=== PATIENT | female | born 2000 | race African-American/Black ===

== ENCOUNTER → 2021-04-03 15:03 | Outpatient (REF) | payer SELFPAY ==
[2021-04-06 03:07] LABS: QNTFERON TB Mitogen Value > 10.00 IU/mL (.); QNTFERON TB Nil Value 0.03 IU/mL (.); QNTFERON TB1+ Ag Value 9.57 IU/mL (.); QNTFERON TB2+ Ag Value 5.93 IU/mL (.)
[2021-04-06 15:29] LABS: QNTIFERON TB Positive Criteria Positive (Negative)
== END ==
LOC: EMPH 15:03
DX: Z00.00 Encounter for general adult medical examination without abnormal findings (principal)
CPT/HCPCS: 36415; 86480

== ENCOUNTER 2021-10-30 15:50 | Outpatient (CLI) | payer MEDICARE, SELFPAY | END 2021-10-30 23:59 | disposition short-term general hospital (02) | LOC: IMMUN 11-07 15:51 | PROVIDERS: Visit Provider Family Medicine | DX: Z23 Encounter for immunization (principal) ==

== ENCOUNTER 2022-06-14 15:20 | Emergency (ER) | payer SELFPAY ==
[2022-06-14 15:21] VITALS: BP 103/74; PULSE 97; RESP 18; TEMP 36.3; O2SAT 98; BMI 22.4
[2022-06-14 15:25] VITALS: BP 103/74; PULSE 97; RESP 18; TEMP 36.3; O2SAT 98
--- NOTE | 2022-06-14 15:31 | EX.ED.DYSGE1 ---
HPI History of Present Illness Chief Complaint: Cold Sx Narrative Narrative: Patient presents with 2 to 3-day history of cough congestion and some myalgias, she had subjective fevers 2 days ago however they have resolved. She has no difficulty breathing, no abdominal pain or rash. She is denying . She has no neck pain or stiffness. No known sick contacts. PFSH PFSH Allergy/AdvReac Type Severity Reaction Status Date / Time No Known Allergies Allergy Verified 06/14/22 15:24 ROS ROS ED ROS Narrative Past medical history: Reviewed, negative Medications: Reviewed Social history: Noncontributory Review of systems: All systems negative except as indicated General: Subjective fevers which improved Eyes: No visual changes ENT: Some upper airway congestion Neck: No neck pain Cardiovascular: No chest pain Respiratory: No shortness of breath or cough Gastrointestinal: No abdominal pain, nausea vomiting or diarrhea Genitourinary: No dysuria Musculoskeletal: Generalized myalgias Skin: No rash Neurological: No memory loss, confusion or any focal weakness Psych: No recent behavioral changes Hematologic: No easy bleeding or easy bruising EXAM Physical Exam Narrative Exam Narrative: Physical exam General: Well nourished, Well developed, No Acute Distress Head: Normocephalic, Atraumatic Eyes: Conjunctiva not pale ENT: Moist mucous membranes, slight upper airway congestion Neck: Supple, Nontender, No lymphadenopathy Cardiovascular: Regular rate, Regular rhythm Respiratory: No distress, CTA bilaterally Abdomen: Soft, Nontender, Nondistended Back: Nontender, Normal Inspection. Negative for: CVA tenderness Extremities: Nontender, No edema Skin: Normal color, No rash Neurological: Alert, Normal Strength, Normal Sensation Psychological: Normal affect Const Vital Signs: 06/14/22 15:21 06/14/22 15:25 Temperature 97.3 F L 97.3 F L Temperature Source Temporal Temporal Pulse Rate 97 97 Respiratory Rate 18 18 Blood Pressure 103/74 103/74 Blood Pressure Mean 83 83 Pulse Ox 98 98 Oxygen Delivery Method Room Air Room Air MDM MDM MDM Narrative Medical decision making narrative: Patient has a viral syndrome. I will test for influenza and COVID she can check results at home otherwise I advised NSAIDs fluids and rest as well as quarantine. Discharge Plan Triage Chief Complaint: Cold Sx ED Provider: Parminder Rodríguez Dx/Rx/DC Orders Clinical Impression: Acute viral syndrome, Acute upper respiratory infection Primary Care Provider: Care Physician,No Primary Referrals: Care Physician,No Primary [Primary Care Provider] - 3-5 Days Disposition Disposition: Home, Self Care
[2022-06-14 15:48] VITALS: PULSE 97; RESP 17; O2SAT 98
== END 2022-06-14 15:56 | disposition home or self-care (01) ==
PROVIDERS: Emergency Provider Emergency Medicine; Visit Provider Emergency Medicine
DX: U07.1 COVID-19 (principal); J06.9 Acute upper respiratory infection, unspecified; B34.9 Viral infection, unspecified
CPT/HCPCS: 87428; 99282

== ENCOUNTER 2022-11-19 13:29 | Emergency (ER) | payer OTHER, SELFPAY ==
[2022-11-19 13:30] VITALS: BP 115/83; PULSE 79; RESP 14; TEMP 36.3; O2SAT 100; BMI 22.3
--- NOTE | 2022-11-19 14:12 | CT_ITS ---
STUDY: CT ABDOMEN AND PELVIS WITH CONTRAST REASON FOR EXAM: Female, 22 years old. Right lower quadrant pain. RADIATION DOSAGE (If Supplied By Facility): CTDIvol = ( 11.50 ) mGy, DLP = ( 297.11 ) mGycm TECHNIQUE: Transaxial images were obtained from the dome of the diaphragm to the symphysis pubis without oral contrast. IV 100mL Isovue-370 was administered. Sagittal and coronal images were reconstructed. Individualized dose optimization techniques were used for this CT. COMPARISON: None. FINDINGS: The visualized lung bases are unremarkable. The visualized portions of the heart are within normal limits. Normal liver. Normal gallbladder and extrahepatic biliary system. Normal spleen. Normal pancreas. Normal bilateral adrenal glands. Normal right kidney. Normal left kidney. Normal visualized stomach. Normal small intestine. Normal colon. The appendix is visualized and appears normal. Normal abdominal aorta. Normal inferior vena cava. Normal retroperitoneum. Normal urinary bladder. Normal abdominal wall. Normal osseous structures. CT/Abdomen/Pelvis W IV Cont ONLY IMPRESSION: Normal enhanced CT of the abdomen and pelvis. Electronically Signed: Bhargav Baig MD at 15:28 EST ,
--- NOTE | 2022-11-19 14:13 | EDS_ITS ---
HPI HPI - GI History of Present Illness Chief Complaint: Abd Pain Informant: patient Narrative Narrative: Progress of right lower quadrant pain since this morning. Bowel movement was mildly loose, no improvement after bowel movement. [place] gassy throughout the day. Reports symptoms of chills. No abdominal surgery in the past no urine symptoms last menstrual period 24 days ago, denies fevers denies vomiting. Nauseated. No history ovarian cyst. No history of similar in the past. Last meal was yesterday. Denies any vaginal bleeding or abnormal discharge. Prior similar symptoms: No PFSH PFSH Medical History History of tuberculosis Home Medications cephalexin 500 mg capsule 500 mg PO Q12 #14 CAPSULES 11/19/22 [Rx Last Taken Unknown] Allergy/AdvReac Type Severity Reaction Status Date / Time No Known Allergies Allergy Verified 11/19/22 13:31 Social History Smoking Status: Never smoker ROS ROS ED Constitutional Constitutional ED: Reports chills; Denies fever(s) or sweats Eyes Eyes: Denies change in vision ENT ENT ED: Denies dysphagia or sore throat Cardiovascular Cardiovascular: Denies chest pain, leg edema, palpitations or racing heartbeat Respiratory/Chest Respiratory/Chest: Denies cough, dyspnea or dyspnea on exertion Gastrointestinal Gastrointestinal: Reports abdominal pain and nausea; Denies diarrhea or vomiting Genitourinary Genitourinary ED: Denies dysuria, hematuria or urinary frequency Musculoskeletal Musculoskeletal: Denies back pain, extremity pain or neck pain Integumentary Denies rash or wounds Neurologic Neurologic: Denies headache(s), paresthesias or weakness EXAM Physical Exam Const Vital Signs: 11/19/22 13:30 11/19/22 15:43 Temperature 97.3 F L Temperature Source Temporal Pulse Rate 79 Respiratory Rate 14 16 Blood Pressure 115/83 H Blood Pressure Mean 93 Pulse Ox 100 Oxygen Delivery Method Room Air Positive well nourished and well developed General Appearance ED: well developed and NAD HEENT Reports moist mucous membranes normocephalic and atraumatic Eyes PERRL, EOMs intact bilaterally and conjunctivae normal General Eye ED: Yes normal appearance of both eyes Neck no lymphadenopathy and supple General: Negative for tenderness Chest Wall Chest: Negative for tenderness Resp normal respiratory effort and normal air movement Effort and Inspection: symmetric chest movement; Negative for respiratory distress Cardio regular rate, regular rhythm and no murmurs Peripheral Pulses: pulses 2+ throughout GI normal to inspection, nondistended, normoactive bowel sounds GI Narrative: Tender right lower quadrant, no pelvic tenderness. Negative Rovsing's. Palpation: Negative for guarding or rebound tenderness present Back/Spine no CVA tenderness and no thoracic nor lumbar tenderness Extremity normal to inspection General Extremety ED: Negative for edema or tenderness General Extremity: Negative for edema Neuro oriented x3 and no sensory deficits noted Sensorium / Orientation: awake and alert Skin no rashes or lesions noted and no wounds MDM MDM MDM Narrative Medical decision making narrative: Interventions / MDM: Differential diagnosis: Appendicitis, kidney stones, ovarian cyst, colitis, ectopic Diagnosis considered but do not suspect: N/A My EKG interpretation: N/A Imaging independently reviewed and interpreted by myself: CT abdomen pelvis: No hydronephrosis, normal appendix, additionally read by radiology. External documents reviewed: N/A Test considered but not ordered:N/A ED course: Patient progressive pain right lower quadrant no pelvic pain. She declined any pain medicines initially. Due to region of pain work-up to rule out appendicitis. Labs White count returned at 6.2 creatinine 0.87 hCG she was negative. Urine did read note positive for 9 whites along with WBC 10-25. Urine culture sent. Interim while CT was reread for increasing pain where morphine was given. CT scan had a normal appendix. Re-evaluation: stable and improved symptoms. Abdominal exam was soft on reevaluation. Patient has not had symptomatic UTIs in the past. Discussed possibly pain or her symptoms for her UTI. She was covered with Rocephin antibiotics she is placed on antibiotics for UTI. Return precaution discussed. Outpatient follow-up given. Disposition discussed with patient/family/significant other: Patient and significant other Case discussed with consulting clinician: N/A Lab Data Attestation: I reviewed the patient's lab results. Labs: Laboratory Results - last 24 hr 11/19/22 11/19/22 11/19/22 13:43 13:43 13:43 WBC 6.2 RBC 4.31 Hgb 12.6 Hct 35.0 L MCV 81.2 MCH 29.2 MCHC 36.0 RDW Std Deviation 41.9 RDW Coeff of Estrada 14.3 Plt Count 307 MPV 10.2 Immature Gran % (Auto) 0.200 Neut % (Auto) 41.2 L Lymph % (Auto) 50.7 H [place] % (Auto) 7.1 Eos % (Auto) 0.5 Baso % (Auto) 0.3 Absolute Neuts (auto) 2.6 Absolute Lymphs (auto) 3.14 Nucleated RBC % 0 Sodium 138 Potassium 4.2 Chloride 108 H Carbon Dioxide 24.0 Anion Gap 6 BUN 13 Creatinine 0.87 Estim Creat Clear Calc 88.33 Est GFR (MDRD) Af Amer 105 Est GFR (MDRD) Non-Af 87 BUN/Creatinine Ratio 14.9 Glucose 88 Calcium 8.9 Serum , Qual NEGATIVE Urine Color Urine Clarity Urine pH Ur Specific [place] Urine Protein Urine Glucose (UA) Urine Ketones Urine Occult Blood Urine Nitrite Urine Bilirubin Urine Urobilinogen Ur Leukocyte Esterase Urine RBC Urine WBC Ur Squamous Epith Cells Urine Bacteria Urine Mucus 11/19/22 14:37 WBC RBC Hgb Hct MCV MCH MCHC RDW Std Deviation RDW Coeff of Estrada Plt Count MPV Immature Gran % (Auto) Neut % (Auto) Lymph % (Auto) [place] % (Auto) Eos % (Auto) Baso % (Auto) Absolute Neuts (auto) Absolute Lymphs (auto) Nucleated RBC % Sodium Potassium Chloride Carbon Dioxide Anion Gap BUN Creatinine Estim Creat Clear Calc Est GFR (MDRD) Af Amer Est GFR (MDRD) Non-Af BUN/Creatinine Ratio Glucose Calcium Serum , Qual Urine Color Yellow Urine Clarity Sl Cloudy Urine pH 7.0 Ur Specific [place] 1.005 Urine Protein 15 H Urine Glucose (UA) Normal Urine Ketones Negative Urine Occult Blood Negative Urine Nitrite Positive H Urine Bilirubin Negative Urine Urobilinogen Normal Ur Leukocyte Esterase 100 H Urine RBC 0-5 SEEN Urine WBC 10-25 SEEN Ur Squamous Epith Cells 0-5 SEEN Urine Bacteria 3+ Urine Mucus 0 SEEN Radiography Diagnostic Testing: Clinical Impression(s) from Imaging Studies Abdomen/Pelvis CT 11/19/22 14:12 IMPRESSION: Normal enhanced CT of the abdomen and pelvis. Electronically Signed: Bhargav Baig MD at 15:28 EST , Discharge Plan Triage Chief Complaint: Abd Pain ED Provider: Robb Lyle Dx/Rx/DC Orders Clinical Impression: Abdominal pain, UTI (urinary tract infection) Instructions: Abdominal Pain, Urinary Tract Infections in Women Prescriptions: New cephalexin [cephalexin] 500 mg capsule 500 mg PO Q12 Qty: 14 0RF Primary Care Provider: Care Physician,No Primary Referrals: Cary Rocha MD [Med Staff - Shank Archer] - 1-2 Weeks Care Physician,No Primary [Primary Care Provider] - Activity Restrictions/Additional Instructions: CT scan with normal appendix labs stable urine no signs of infection. Take antibiotic as prescribed, Tylenol or ibuprofen as needed. Return if any worsening symptoms. Disposition Disposition: Home, Self Care Discharge Date/Time: 11/19/22 16:54
[2022-11-19 14:26] LABS: Absolute Lymphocyte Count 3.14 X10^3/uL (0.83-4.51); Absolute Neutrophil Count 2.6 X10^3/uL (2.0-7.7); Basophil# 0.02 X10^3/uL; Basophil% 0.3 % (0-1); Eosinophil# 0.03 X10^3/uL; Eosinophils% 0.5 % (0-5); Hemoglobin 12.6 g/dL (12.0-15.0); Lymphocyte # 3.14 X10^3/ul (0.83-4.51); Lymphocyte % 50.7 % (19-41); Mean Corpuscular Hgb 29.2 pg (27.0-32.0); Mean Corpuscular Volume 81.2 fL (81-99); Mean Platelet Vol. 10.2 fl (6.2-12.0); Monocyte# 0.44 X10^3/uL; Monocyte% 7.1 % (0-10); NRBC Flagged by Analyzer 0 % (0-5); Neutrophil # 2.55 X10^3/uL (2.7-7.7); Neutrophil % 41.2 % (47-70); Platelet Count 307 K/mm3 (150-450); RBC Distribution Width CV 14.3 % (11.6-14.6); RBC Distribution Width SD 41.9 fl (35.1-43.9); Red Blood Count 4.31 M/mm3 (4.2-5.4); White Blood Count 6.2 K/mm3 (4.4-11.0)
[2022-11-19] MEDS: 0.9% Normal Saline 1,000 ML 1000 ML IV (14:37)
[2022-11-19] MEDS: Ondansetron 4 MG/2 ML Vial IV (14:37)
[2022-11-19 14:41] LABS: Anion Gap 6 (5-15); BUN 13 mg/dL (7-18); BUN/Creat Ratio 14.9 RATIO (10-20); Calcium,Total 8.9 mg/dL (8.5-10.1); Chloride 108 mmol/L (98-107); Creatinine, Serum 0.87 mg/dL (0.55-1.02); EST Glomerular Filtration Rate 87 mL/min (>60); Est Glom Filt Rate - Afr Amer 105 mL/min (>60); Estimated Creatinine Clearance 88.33 ml/min; Glucose 88 mg/dL (74-106); Potassium 4.2 mmol/L (3.5-5.1); Sodium Level 138 mmol/L (136-145)
[2022-11-19 14:44] LABS: Mucous, Urine 0 SEEN /hpf (<or=2+)
[2022-11-19 14:46] LABS: Glucose, Dipstick Normal (Normal); Ketone-Dipstick Negative (Negative); Leukocyte Esterase-Dipstick 100 /ul (Negative); Nitrite-Dipstick Positive (Negative); Occult Blood-Urine Negative /ul (Negative); Protein-Dipstick 15 mg/dl (Negative); Specific Gravity, Urine 1.005 (1.002-1.030); Urine Bilirubin Dipstick Negative (Negative); Urine Urobilinogen Normal (Normal)
[2022-11-19 14:54] LABS: Color, Urine Yellow (Yellow); Urine Clarity Sl Cloudy (Clear)
[2022-11-19 14:56] LABS: Internal QC Validated? YES +Cl - CLEAR BKGD; Pregnancy, Serum, hCG Quali. NEGATIVE Negative
[2022-11-19 14:57] LABS: Red Blood Cells-Urine 0-5 SEEN /hpf (0-5); Squamous Epithelial Cells - UA 0-5 SEEN /hpf (5-10); White Blood Cells 10-25 SEEN /hpf (0-5)
[2022-11-19 14:58] LABS: Bacteria 3+ /hpf (None Seen)
[2022-11-19] MEDS: Morphine 4 MG/ML Syringe IV (15:15)
[2022-11-19 15:43] VITALS: RESP 16
[2022-11-19] MEDS: Ceftriaxone 1 GM/50 ML BAG IV (16:03)
== END 2022-11-19 16:54 | disposition home or self-care (01) ==
PROVIDERS: Emergency Provider Emergency Medicine; Visit Provider Emergency Medicine
DX: N39.0 Urinary tract infection, site not specified (principal); R11.0 Nausea
CPT/HCPCS: 74177; 80048; 81001; 84703; 85025; 87086; 87088; 96361; 96365; 96375; 99283; J7030; J7050; Q9967; A4216; J2405

== ENCOUNTER 2022-12-19 20:33 | Emergency (ER) | payer OTHER, SELFPAY ==
[2022-12-19 20:33] VITALS: BP 105/66; PULSE 83; RESP 100; TEMP 36.4; BMI 22.6
[2022-12-19 21:02] VITALS: O2SAT 98
--- NOTE | 2022-12-19 21:02 | EDS_ITS ---
HPI History of Present Illness Chief Complaint: General Illness Detail of Chief Complaint: Sore throat and cough. Informant: patient Onset/Context/Timing Onset: Today and Yesterday Context: Gradual Onset Timing: Intermittent Current Severity: Mild Maximum Severity: Mild Narrative Narrative: 22-year-old female no seen past medical or surgical history. Currently on no medications. 2 to 3 weeks ago was diagnosed with a UTI treated with antibiotics and his symptoms resolved. She is a student at [employer]. Said she has been congested since yesterday. Has had a sore throat but is able to swallow. She just has not felt well. No vomiting. No diarrhea. No dysuria. Prior similar symptoms: Yes Recent Illness/Hospitalization: No PFSH PFS Medical History History of tuberculosis Home Medications cephalexin 500 mg capsule 500 mg PO Q12 #14 CAPSULES 11/19/22 [Rx Last Taken Unknown] Allergy/AdvReac Type Severity Reaction Status Date / Time No Known Allergies Allergy Verified 12/19/22 20:37 Social History Smoking Status: Never smoker ROS ROS ED ROS Narrative Nasal congestion. Sore throat. Cough. Review of Systems ROS Unobtainable: Denies due to encephalopathy Constitutional Constitutional ED: Denies chills or fever(s) Eyes Eyes: Denies blurry vision ENT ENT ED: Reports rhinorrhea and sore throat; Denies ear pain Cardiovascular Cardiovascular: Denies chest pain Respiratory/Chest Respiratory/Chest: Reports cough; Denies dyspnea Gastrointestinal Gastrointestinal: Denies abdominal pain, constipation, diarrhea, melena, nausea or vomiting Genitourinary Genitourinary ED: Denies dysuria or hematuria Musculoskeletal Musculoskeletal: Denies arthralgias Integumentary Denies abscess or Abrasions Neurologic Neurologic: Denies headache(s) Psychiatric Psychiatric: Denies anxiety or depression Endocrine Endocrinology: Denies cold intolerance Hematologic/Lymphatic Hematologic/Lymphatic: Reports none Allergic/Immunologic Allergic/Immunologic ED: Denies mouth swelling or tongue swelling EXAM Physical Exam Narrative Exam Narrative: 22-year-old female no acute distress. Vital signs are stable afebrile. H EENT exam posterior pharynx unremarkable. No exudate. No trouble swallowing or breathing. No significant erythema. TMs normal bilaterally. Neck nontender no lymphadenopathy. Trachea midline. Lungs clear to auscultation bilaterally. Heart regular rhythm rate about 80 no murmur. Chest wall nontender. Abdomen soft nontender. Moving all 4 extremities. Calves are nontender without edema or cords. Back nontender. Neurologically she is awake alert with no focal motor deficits. Clinically patient looks well. Benign exam. Const Vital Signs: 12/19/22 20:33 12/19/22 21:00 12/19/22 21:02 Temperature 97.5 F L Temperature Source Temporal Pulse Rate 83 Respiratory Rate 100 H Respiratory Effort Normal Blood Pressure 105/66 Blood Pressure Mean 79 Pulse Ox 98 Oxygen Delivery Method Room Air Room Air Positive well nourished and well developed; Negative for obese, cachectic, contractures or unkempt General Appearance ED: well developed and NAD; Negative for unkempt, cachectic, contractures, cyanotic, diaphoretic or pallor Nutritional Appearance: Negative for cachectic or obese HEENT Reports TM's clear and moist mucous membranes; Denies dry mucous membranes Negative for trauma or tenderness Tympanic Membrane ED: Yes TM's clear Mouth ED: No dry mucous membranes Mouth: No dry mucous membranes Eyes EOMs intact bilaterally General Eye ED: Negative for pale conjunctiva or scleral icterus Neck no lymphadenopathy, supple and no JVD General: Negative for tenderness Chest Wall inspection of chest normal and palpation of chest normal Chest: Negative for other Resp normal respiratory effort and clear to auscultation bilaterally Effort and Inspection: Negative for retractions Auscultation: Negative for rales, rhonchi or wheezes Cardio regular rate, regular rhythm, S1 normal heart sound, S2 normal heart sound and no murmurs Palpation: Negative for palpable S3 Rate: Negative for bradycardia Rhythm: Negative for abnormal rhythm GI normal to inspection, nondistended, normoactive bowel sounds, non-tender, non- distended and no masses Inspection: Negative for abdominal distention Auscultation: normoactive bowel sounds Palpation: soft; Negative for tender or guarding Back/Spine no CVA tenderness General Back: Negative for CVA tenderness Cervical Spine: Negative for cervical spine tenderness Thoracic Spine / Upper Back: Negative for thoracic spinal tenderness Lumbar Spine / Lower Back: Negative for lumbar spinal tenderness Extremity normal to inspection General Extremety ED: Negative for edema or tenderness General Extremity: Negative for edema Neuro oriented x3 and CN's II-XII intact bilaterally Sensorium / Orientation: alert; Negative for orientation impaired, lethargic or stuporous Motor Exam: strength 5/5 throughout Psych mental status grossly normal Appearance: Negative for unkempt Attitude: No agitated Mood & Affect: Negative for depressed, anxious or tearful Skin no rashes or lesions noted and no wounds General Skin Exam: elasticity normal; Negative for jaundice or pallor Lesions: No lesion noted Rashes: No rashes noted Trauma: Negative for abrasion Wounds: Negative for wounds noted MDM MDM MDM Narrative Medical decision making narrative: 22-year-old female with sore throat and cough. Rapid strep and chest x-ray being obtained. Clinically looks well. Does not appear to be septic or toxic. No meningismal signs. Able to touch chin to chest. Most likely has a viral syndrome. Repeat exam patient doing well at 10:11 PM. Repeat exam unchanged. Throat is unremarkable. We discussed her test results. Tylenol Motrin. Fluids and rest. Follow-up if not improving or return if worse. Lab Data Attestation: I reviewed the patient's lab results. Lab results narrative: Rapid strep test is negative. Chest x-ray is negative. Radiography Chest X-Ray - ED: 2 View, Read by ED Physician, Read by Radiologist, Lungs, Mediastinum, Bony Structures, No Acute Disease and Chronic Changes Diagnostic Testing: Clinical Impression(s) from Imaging Studies Chest X-Ray 12/19/22 21:07 IMPRESSION: No radiographic evidence of acute cardiopulmonary disease. Electronically Signed: Jaime Cartwright MD at 21:27 EDT Reading Location ID and State: [facility] / [place] , Service support , Chest x-ray, 2 views, AP and lateral, interpreted by myself and radiologist shows no acute abnormality. No infiltrate. Normal cardiac silhouette. Discharge Plan Triage Chief Complaint: General Illness ED Provider: Alexander Posada Dx/Rx/DC Orders Clinical Impression: Viral syndrome Instructions: ED URI, Viral, No Abx (Adult) Prescriptions: No Action cephalexin [cephalexin] 500 mg capsule 500 mg PO Q12 Qty: 14 0RF Primary Care Provider: Care Physician,No Primary Referrals: Farhat Guajardo MD [Med Staff - [employer]] - 1 Week if not improving Care Physician,No Primary [Primary Care Provider] - Activity Restrictions/Additional Instructions: Plenty of fluids and rest. Tylenol and Motrin for body aches and any fevers. Follow-up if not improving return if feeling a lot worse. Disposition Disposition: Home, Self Care
--- NOTE | 2022-12-19 21:07 | RAD_ITS ---
EXAM: XR CHEST, 2 VIEWS CLINICAL INDICATION: cough TECHNIQUE: Frontal and lateral views of the chest. This report was created using [employer] report generation technology. COMPARISON: 04.12.21 FINDINGS: LUNGS AND PLEURAL SPACES: Unremarkable. No consolidation or edema. No pneumothorax. No effusion. HEART: Unremarkable. Cardiac silhouette not enlarged. MEDIASTINUM: Central airways and mediastinal contour are unremarkable. BONES/JOINTS: Unremarkable. SOFT TISSUES: Unremarkable. RAD/Chest PA and Lateral IMPRESSION: No radiographic evidence of acute cardiopulmonary disease. Electronically Signed: Jaime Cartwright MD at 21:27 EDT ,
[2022-12-19 22:13] VITALS: RESP 16
== END 2022-12-19 22:23 | disposition home or self-care (01) ==
PROVIDERS: Emergency Provider Emergency Medicine; Visit Provider Emergency Medicine
DX: B34.9 Viral infection, unspecified (principal)
CPT/HCPCS: 71046; 87880; 94760; 99282

== ENCOUNTER 2023-01-16 06:49 | Emergency (ER) | payer OTHER, SELFPAY ==
[2023-01-16 06:50] VITALS: BP 117/79; PULSE 94; RESP 16; TEMP 36.7; O2SAT 97; BMI 23.1
--- NOTE | 2023-01-16 07:13 | RAD_ITS ---
STUDY: X-RAY - LEFT SHOULDER REASON FOR EXAM: Female, 22 years old. Pain TECHNIQUE: 4 view(s) of the shoulder. COMPARISON: None. FINDINGS: Normal glenohumeral articulation. Normal acromioclavicular joint. Normal acromion. Normal humeral head and visualized proximal humerus. The soft tissue structures are unremarkable. Normal visualized pulmonary apex. RAD/Shoulder min 2 Views IMPRESSION: Normal x-ray examination of the shoulder. Electronically Signed: Edwin Caban MD at 7:50 EDT ,
--- NOTE | 2023-01-16 07:16 | EDS_ITS ---
HPI History of Present Illness Chief Complaint: Upper Extremity Injury Informant: patient Narrative Narrative: Patient states she started having left anterior shoulder pain 5 days ago, started gradually and got worse but then it went away. She is [id number] nt. She states 2 days ago she was working out but doing lower body, and since then her left shoulder has been hurting worse again, same pain, now severe. She does not recall injuring it. When asked about the type of workout she was doing prior to this she states basically cardio, she was not doing specific workouts involving her arms or shoulders. She denies any fevers or chills or any systemi c symptoms. It is never hurt like this before. She denies any other types of arthritis in the past. [facility] Medical History History of tuberculosis Home Medications naproxen 500 mg tablet (Naprosyn) 500 mg PO BID PRN pain #14 tabs 01/16/23 [Rx Last Taken Unknown] tramadol 50 mg tablet 50 mg PO Q6H PRN pain 3 days #12 tabs 01/16/23 [Rx Last Taken Unknown] Allergy/AdvReac Type Severity Reaction Status Date / Time No Known Allergies Allergy Verified 01/16/23 06:57 Social History Smoking Status: Never smoker ROS ROS ED Constitutional Constitutional ED: Denies chills or fever(s) Musculoskeletal Musculoskeletal: Reports extremity pain; Denies neck pain Integumentary Denies Abrasions, rash or wounds Neurologic Neurologic: Denies paresthesias or weakness EXAM Physical Exam Const Vital Signs: 01/16/23 06:50 Temperature 98.1 F Temperature Source Temporal Pulse Rate 94 Respiratory Rate 16 Blood Pressure 117/79 Blood Pressure Mean 91 Pulse Ox 97 Oxygen Delivery Method Room Air Positive well nourished and well developed General Appearance ED: well developed and NAD Neck full ROM and supple Back/Spine normal ROM and normal to inspection Extremity normal to inspection Extremity Narrative: Patient can do some short arc range of motion but she does very little with the left shoulder. She is extremely tender anteriorly around the long head of the biceps. Nontender at the coracoid and the acromioclavicular joint and the other bony prominences of the left shoulder. No significant subacromial tenderness. Positive Yergason. Neurovascularly intact distally. Shoulder is not excessively warm compared to other areas. Neuro oriented x3, no focal motor deficits and no sensory deficits noted Sensorium / Orientation: alert Psych mental status grossly normal and thought process normal Skin no wounds Rashes: no rashes MDM MDM MDM Narrative Medical decision making narrative: Very limited exam/range so difficult to discern exactly the structure that is bothering her, but given the location, my suspicion is that she has biceps tendinitis. She really does not want to move her shoulder, she can externally rotate but states it hurts, and she will not abduct due to pain. She is tearful. She becomes anxious and tearful just with me gently examining her shoulder by palpating in anticipation that I am going to move something. It is not hot and her vital signs are normal, she is healthy 22-year-old who has no reason to have a septic joint or anything else like that, furthermore I think that is less likely because her pain is localized anteriorly where the long head of the biceps is. She does not have any other focal areas of significant tenderness. I performed x-rays, 4 views of interpretation negative for anything acute. Radiology was in agreement. I am given her a sling to use for comfort, something for pain including anti-inflammatories, and a referral to orthopedics if she has further problems. Discharge Plan Triage Chief Complaint: Upper Extremity Injury ED Provider: Harish Mccarthy Dx/Rx/DC Orders Clinical Impression: Acute pain of left shoulder Instructions: Biceps Tendonitis Proximal, ED Sling Prescriptions: New tramadol 50 mg tablet 50 mg PO Q6H PRN (Reason: pain) 3 Days Qty: 12 0RF naproxen [Naprosyn] 500 mg tablet 500 mg PO BID PRN (Reason: pain) Qty: 14 0RF Primary Care Provider: Care Physician,No Primary Referrals: Greg Moran, [Med Staff - Active Staff] - 3-5 Days if not improving Care Physician,No Primary [Primary Care Provider] - Activity Restrictions/Additional Instructions: If you develop fevers and your shoulder begins to hurt everywhere instead of just in the front, return to the ER for reevaluation. Disposition Disposition: Home, Self Care
[2023-01-16] MEDS: Naproxen 250 MG Tablet 500 MG PO (08:07)
[2023-01-16] MEDS: HYDROcodone Bitartrate/Apap 5/325 Tablet PO (08:08)
== END 2023-01-16 08:12 | disposition home or self-care (01) ==
PROVIDERS: Emergency Provider Emergency Medicine; Visit Provider Emergency Medicine
DX: M25.512 Pain in left shoulder (principal)
CPT/HCPCS: 73030; 99284

== ENCOUNTER 2023-06-01 21:05 | Emergency (ER) | payer OTHER, SELFPAY ==
[2023-06-01 21:06] VITALS: BP 114/68; PULSE 93; RESP 16; TEMP 36.4; O2SAT 99; BMI 23.3
[2023-06-01 21:33] VITALS: RESP 18
[2023-06-01 22:26] LABS: Mucous, Urine 0 SEEN /hpf (<or=2+); Red Blood Cells-Urine 0 SEEN /hpf (0-5); White Blood Cells 0 SEEN /hpf (0-5)
[2023-06-01 22:31] LABS: Color, Urine Yellow (Yellow); Glucose, Dipstick Normal (Normal); Ketone-Dipstick Negative (Negative); Leukocyte Esterase-Dipstick 25 /ul (Negative); Nitrite-Dipstick Negative (Negative); Occult Blood-Urine 150 /ul (Negative); Protein-Dipstick 15 mg/dl (Negative); Specific Gravity, Urine 1.015 (1.002-1.030); Urine Bilirubin Dipstick Negative (Negative); Urine Clarity Clear (Clear); Urine Urobilinogen Normal (Normal)
[2023-06-01 22:41] LABS: Amorphous Sediment 1+; Bacteria 1+ /hpf (None Seen); Squamous Epithelial Cells - UA 5-10 SEEN /hpf (5-10)
--- NOTE | 2023-06-01 22:44 | EDS_ITS ---
HPI HPI - Female History of Present Illness Chief Complaint: Female C/O Detail of Chief Complaint: Painful lesion near the inferior portion of the labia majora on the left Informant: patient Pain Pain: Positive for Vaginal Pain; Negative for Pelvic Pain or Vulvar Pain Onset: Days (2 days ago) Context: Sudden Onset Timing: Continuous Quality: Positive for Aching Location: - (Left inferior labia majora) Current Severity: Mild Maximum Severity: Moderate Worsened by: Movement and [place] Relieved by: - (Nothing) Bleeding Issue: Negative for Vaginal bleeding, Passing clots or Passing tissue Vaginal Discharge Onset: Today Quality: Positive for - (Brown) Severity: Light Associated Symptoms Associated Symptoms: Positive for Irregular Period; Negative for Dysuria, Frequency, Urgency or Hematuria Last known menstrual period: May 22 Sexually: Positive for Active Control: No control Narrative Narrative: Patient is a 23-year-old female presents with pain inferior left labia majora/perineal region. She does report brown vaginal discharge. The pain started 2 days ago. Brown vaginal discharge noted today. She does report dyspareunia. She is does not use any form of control. She has no signs symptoms of . Her last menses was April 21. She complains of fullness in the bladder area. She denies pain or discomfort with urination. She denies blood with urination. She denies history of STI. Prior similar symptoms: No Recent Illness/Hospitalization: No PFSH PFS Medical History History of tuberculosis Home Medications naproxen 500 mg tablet (Naprosyn) 500 mg PO BID PRN pain #14 tabs 01/16/23 [Rx Last Taken Unknown] tramadol 50 mg tablet 50 mg PO Q6H PRN pain 3 days #12 tabs 01/16/23 [Rx Last Taken Unknown] doxycycline monohydrate 100 mg capsule 100 mg PO BID #14 CAPSULES 06/01/23 [Rx Last Taken Unknown] Allergy/AdvReac Type Severity Reaction Status Date / Time No Known Allergies Allergy Verified 06/01/23 21:06 Social History (Updated 06/01/23 @ 22:[address] Gaston Campuzano MD) household members: none Smoking Status: Never smoker substance use type: does not use ROS ROS ED Constitutional Constitutional ED: Denies chills, fever(s), subjective or sweats Eyes Eyes: Denies blurry vision or change in vision ENT ENT ED: Denies sore throat Gastrointestinal Gastrointestinal: Denies abdominal pain, diarrhea, nausea or vomiting Genitourinary Genitourinary ED: Denies dysuria, hematuria or urinary frequency Musculoskeletal Musculoskeletal: Denies arthralgias, myalgias or neck pain Integumentary Denies rash Hematologic/Lymphatic Hematologic/Lymphatic: Denies easy bleeding or easy bruising EXAM Physical Exam Const Vital Signs: 06/01/23 21:06 Temperature 97.5 F L Temperature Source Temporal Pulse Rate 93 Respiratory Rate 16 Blood Pressure 114/68 Blood Pressure Mean 83 Pulse Ox 99 Positive well nourished and well developed General Appearance ED: well developed and NAD; Negative for odor of alcohol detected HEENT Reports TM's clear and moist mucous membranes HEENT Narrative: Head is normocephalic and atraumatic. Nares patent. Posterior pharynx is normal. Tympanic Membrane ED: Yes TM's clear Eyes PERRL and EOMs intact bilaterally General Eye ED: Negative for pale conjunctiva or scleral icterus Neck no lymphadenopathy, supple and no JVD Resp normal respiratory effort Cardio regular rate and regular rhythm GI normal to inspection, nondistended, normoactive bowel sounds, soft to palpation, non-tender, non-distended and no masses Narrative: External genitalia appears normal. Vaginal mucosa appears normal. Patient has brown cervical discharge noted. There is no particular orders noted. There is slight inflammation of the cervix. Patient has tenderness with no fullness or fluctuance at the introitus at 4 or 5:00. There is no rosa lymphadenopathy. There is no discomfort pressure against the bladder. Back/Spine no CVA tenderness Extremity normal to inspection and full ROM Neuro oriented x3, CN's II-XII intact bilaterally and no sensory deficits noted Sensorium / Orientation: alert Motor Exam: strength 5/5 throughout Psych mental status grossly normal Skin no rashes or lesions noted MDM MDM MDM Narrative Medical decision making narrative: Patient may have STI. Also need to concern for possible early Bartholin's abscess. Will obtain urine to rule out UTI. Serum test was ordered since her last menses was April 21 and patient does not use any form of control. Lab Data Attestation: I reviewed the patient's lab results. Lab results narrative: UA reveals a contaminated specimen. test was negative. Since process is negative and patient has dyspareunia with brown discharge will treat with doxycycline and Rocephin. She was referred to Dr. Solano Labs: Laboratory Results - last 24 hr 06/01/23 06/01/23 22:20 22:40 Serum , Qual NEGATIVE Urine Color Yellow Urine Clarity Clear Urine pH 7.0 Ur Specific [place] 1.015 Urine Protein 15 H Urine Glucose (UA) Normal Urine Ketones Negative Urine Occult Blood 150 H Urine Nitrite Negative Urine Bilirubin Negative Urine Urobilinogen Normal Ur Leukocyte Esterase 25 H Urine RBC 0 SEEN Urine WBC 0 SEEN Ur Squamous Epith Cells 5-10 SEEN Amorphous Sediment 1+ Urine Bacteria 1+ Urine Mucus 0 SEEN Discharge Plan Triage Chief Complaint: Female C/O ED Provider: Gaston Campuzano Dx/Rx/DC Orders Clinical Impression: Acute cervicitis, Pelvic pain, Purulent vaginal discharge Prescriptions: New doxycycline monohydrate 100 mg capsule 100 mg PO BID Qty: 14 0RF No Action tramadol 50 mg tablet 50 mg PO Q6H PRN (Reason: pain) 3 Days Qty: 12 0RF naproxen [Naprosyn] 500 mg tablet 500 mg PO BID PRN (Reason: pain) Qty: 14 0RF Primary Care Provider: Care Physician,No Primary Referrals: Barbra Li DO [Med Staff - Active Staff] - 3-5 Days Care Physician,No Primary [Primary Care Provider] - Activity Restrictions/Additional Instructions: You may take either 4 ibuprofen tablets every 8 hours or 2 Aleve tablets every 12 hours for the next 3 to 5 days for your pelvic pain Disposition Disposition: Home, Self Care
[2023-06-01 22:58] LABS: Internal QC Validated? YES +Cl - CLEAR BKGD; Pregnancy, Serum, hCG Quali. NEGATIVE Negative
[2023-06-01] MEDS: Acetaminophen 500 MG Tablet PO (23:04)
[2023-06-02] MEDS: Doxycycline 100 MG CAPSULE PO (00:18)
[2023-06-02] MEDS: Ceftriaxone 500 MG Vial IM (00:18)
== END 2023-06-02 01:12 | disposition home or self-care (01) ==
PROVIDERS: Emergency Provider Emergency Medicine; Visit Provider Emergency Medicine
DX: N89.8 Other specified noninflammatory disorders of vagina (principal); N72 Inflammatory disease of cervix uteri; N94.10 Unspecified dyspareunia; R10.2 Pelvic and perineal pain
CPT/HCPCS: 81001; 84703; 87491; 87591; 96372; 99283

== ENCOUNTER 2023-08-28 15:18 | Emergency (ER) | payer OTHER, SELFPAY ==
[2023-08-28 15:21] VITALS: BP 98/61; PULSE 109; RESP 18; TEMP 36.4; O2SAT 99; BMI 23.1
--- NOTE | 2023-08-28 15:26 | EDS_ITS ---
HPI History of Present Illness Chief Complaint: Fever [facility] Medical History History of tuberculosis Home Medications amoxicillin 875 mg-potassium clavulanate 125 mg tablet 1 tab PO BID #14 tabs 08/28/23 [Rx Last Taken Unknown] Allergy/AdvReac Type Severity Reaction Status Date / Time No Known Allergies Allergy Verified 08/28/23 15:20 Family History no significant family his Social History household members: none Smoking Status: Current every day smoker tobacco type: e-cigarettes substance use type: does not use EXAM Physical Exam Const Vital Signs: 08/28/23 15:21 08/28/23 15:27 Temperature 97.6 F L Temperature Source Temporal Pulse Rate 109 H Respiratory Rate 18 Respiratory Pattern Normal Blood Pressure 98/61 Blood Pressure Mean 73 Pulse Ox 99 Oxygen Delivery Method Room Air MDM MDM MDM Narrative Medical decision making narrative: HISTORY OF PRESENT ILLNESS: 23-year-old female here with concern for feverAnd pain. States he has been putting on. States took Tylenol 1 hour prior to arrival. Notes home therapy 100.4. Also notes nausea sore throat headache and swollen glands. Patient denies sudden onset or thunderclap headache, denies maximal intensity within 1 minute, vomiting, neck pain, stiffness, changes in vision, fever, history malignancy, syncope, or seizures associated with headache. REVIEW OF SYSTEMS: Pertinent positives: Sore throat, headache, fever Pertinent negatives: Syncope, drooling, difficulty swallowing PHYSICAL EXAM: Nursing triage notes reviewed, Vital signs reviewed Constitutional: please see mdm HENT: MMM, erythema noted posterior oropharynx, mild tonsillar edema, uvula midline, tonsillar exudates noted Eyes: Pupils equal round and reactive to light, Extraocular muscles intact Neck: No stridor, no JVD, full neck ROM, anterior cervical lymphadenopathy Lungs: Clear to auscultation, No wheezing or rales. No increased work of breathing, no conversational dyspnea, no accessory muscle use, no nasal flaring. No respiratory distress noted Heart: Regular rate and rhythm, No murmurs, No rubs and No gallops, 2+ distal pulses (radial, femoral, posterior tibial) in all extremities Abdomen: Soft, there is no tenderness, rigidity, rebound or guarding, no obvious peritoneal signs, no palpable pulsatile abdominal masses, no auscultated abdominal bruit Neuro: Alert and oriented x3, neuro exam at baseline, cranial nerves II through XII are intact. No pain with extraocular muscle movement. There is negative test of skew. 5 of 5 strength in upper and lower extremities in flexion extension. Intact sensation to light touch in upper and lower extremity dermatomes. No truncal or extremity ataxia. No dysdiadochokinesia. Normal gait. 2+ reflexes in upper and lower extremities. No meningeal signs. Negative Babinski. NIH of 0. Skin: No rash or lesions noted MEDICAL DECISION MAKING: Chief Complaint: Fever External records reviewed: COVID-positive in 2021 Factors affecting care: none Social determinants of health: none History obtained from others: none Consults: none [facility] Narrative: Patient was initially mildly tachycardic, afebrile. Exam I considered the following differential diagnosis: Viral URI, COVID, flu, pharyngitis Patient's clinical exam is consistent with bacterial pharyngitis we will give empiric Augmentin. Gave strict return precautions. No signs of Alvin angina, RPA, CAREER COACH or LeMiere syndrome. The patient and/or family, caregivers express understanding. The patient and/or family, caregivers agrees with the plan. Shared decision making: I will have a discussion with the patient and or visitors regarding risk/benefits of further testing or admission. They will be made aware of of the risk/benefits inherent in this decision they will be given the opportunity to voice understanding. Total critical care time today provided was at least 0 minutes. This excludes separately billable procedures. Critical care time (if documented) is secondary to the patient having high probability of clinically significant/life threatening deterioration in the patient's condition which required my urgent intervention. Impression: 1. Acute bacterial pharyngitis Dispo: Discharge Discharge Plan Triage Chief Complaint: Fever ED Provider: Alfredo Estes Dx/Rx/DC Orders Instructions: Tonsillitis in Adults Prescriptions: New amoxicillin-pot clavulanate 875-125 mg tablet 1 tab PO BID Qty: 14 0RF Stand Alone Forms: ED Work / School Excuse Primary Care Provider: Care Physician,No Primary Referrals: Alfa Dennis MD [Med Staff - [employer] Par[employer]] - Activity Restrictions/Additional Instructions: Thank you for trusting us with your care today! Please take Tylenol (2 pills, 650 mg), ibuprofen (2 pills, 400 mg) every 6 hours as needed for pain and fever control. Please take antibiotics as prescribed. Please return to the emergency department if your symptoms change or worsen. Specific if develop drooling, neck stiffness, swelling underneath your jaw, difficulty swallowing, vomiting. Please follow with your primary care physician for further outpatient evaluation and management. Disposition Disposition: Home, Self Care
[2023-08-28] MEDS: Ibuprofen 200 MG Tablet 400 MG PO (15:49)
[2023-08-28] MEDS: Amox/Clavulanate 875 MG Tablet PO (15:50)
[2023-08-28 16:12] VITALS: PULSE 78; RESP 18
== END 2023-08-28 16:24 | disposition home or self-care (01) ==
LOC: ED 15:53
PROVIDERS: Emergency Provider Emergency Medicine; Visit Provider Emergency Medicine
DX: J02.9 Acute pharyngitis, unspecified (principal); F17.290 Nicotine dependence, other tobacco product, uncomplicated
CPT/HCPCS: 99283

== ENCOUNTER 2023-11-10 06:10 | Emergency (ER) | payer SELFPAY ==
[2023-11-10 06:11] VITALS: BP 102/66; PULSE 96; RESP 16; TEMP 36.6; O2SAT 98; BMI 23.5
--- NOTE | 2023-11-10 06:27 | ED.VIS.GI ---
HPI HPI - GI History of Present Illness Chief Complaint: Nausea/Vomiting Informant: patient Abdominal Pain/Flank Pain Onset: Yesterday Context: Gradual Onset Timing: Continuous Quality: Aching Location: - (Periumbilical bilateral) Current Severity: Moderate Maximum Severity: Moderate Worsened by: - (Vomiting) Relieved by: Nothing Nausea/Vomiting/Emesis GI Symptom: Positive for Nausea and Vomiting Onset: Yesterday Quality: Positive for Nonbilious; Negative for Blood streaks, Coffee ground or Hematemesis Severity: Severe Diarrhea/Melena/Hematochezia GI Symptom: Positive for Diarrhea; Negative for Melena or Hematochezia Onset: Yesterday Stool Quality: Positive for Watery Severity: Moderate Associated Symptoms Associated Symptoms: Negative for Dysuria, Frequency or Hematuria Narrative Narrative: Patient started feeling poorly last night around 8 PM, abdominal discomfort, nausea, diarrhea. She was out with some friends and had a cocktail but states she did not drink a lot of alcohol, started feeling worse later with more vomiting and diarrhea and subjective fevers although she did not take her temperature. Having trouble keeping things down including water overnight, presenting around 6:00 AM. 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 No history of any abdominal surgeries and is healthy otherwise. [facility] Medical History History of tuberculosis Home Medications desogestrel 0.15 mg-ethinyl estradiol 0.03 mg tablet (Enskyce) 1 tab PO DAILY 11/10/23 [History Last Taken Unknown] dicyclomine 10 mg capsule 20 mg (2 x 10 mg) PO Q8H PRN PRN abdominal pain #20 CAPSULES 11/10/23 [Rx Last Taken Unknown] ondansetron 4 mg disintegrating tablet 8 mg (2 x 4 mg) PO Q8H PRN PRN Nausea #20 tabs 11/10/23 [Rx Last Taken Unknown] Allergy/AdvReac Type Severity Reaction Status Date / Time No Known Allergies Allergy Verified 08/28/23 15:20 Social History household members: none Smoking Status: Never smoker substance use type: does not use ROS ROS ED Constitutional Constitutional ED: Reports fever(s), malaise and subjective; Denies chills Eyes Eyes: Denies change in vision or diplopia ENT ENT ED: Denies rhinorrhea or sore throat Cardiovascular Cardiovascular: Denies chest pain or palpitations Respiratory/Chest Respiratory/Chest: Denies cough or dyspnea Gastrointestinal Gastrointestinal: Reports abdominal pain, diarrhea, nausea and vomiting; Denies hematemesis, hematochezia or melena Genitourinary Genitourinary ED: Denies dysuria or hematuria Musculoskeletal Musculoskeletal: Denies back pain or neck pain Integumentary Denies abscess or rash Neurologic Neurologic: Reports headache(s); Denies paresthesias or weakness Psychiatric Psychiatric: Denies anxiety or suicidal thoughts EXAM Physical Exam Const Vital Signs: 11/10/23 06:11 Temperature 97.8 F Temperature Source Oral Pulse Rate 96 Respiratory Rate 16 Blood Pressure 102/66 Blood Pressure Mean 78 Pulse Ox 98 Oxygen Delivery Method Room Air Positive well nourished and well developed Constitutional Narrative: Appears malaised holding an emesis bag but otherwise in no distress General Appearance ED: well developed and NAD HEENT Reports moist mucous membranes normocephalic and atraumatic Eyes PERRL and EOMs intact bilaterally Neck full ROM and supple Resp normal respiratory effort and clear to auscultation bilaterally Cardio regular rate, regular rhythm and no murmurs Rate: Negative for tachycardic GI non-distended GI Narrative: Tender left upper quadrant more so than epigastrium, otherwise benign abdomen. No guarding or rebound tenderness. Auscultation: normoactive bowel sounds Palpation: soft Back/Spine no CVA tenderness General Back: other FROM Extremity normal to inspection General Extremety ED: Negative for edema, pulses abnormal or tenderness General Extremity: Negative for edema or pulses abnormal Neuro oriented x3, CN's II-XII intact bilaterally and no sensory deficits noted Sensorium / Orientation: awake and alert Motor Exam: strength 5/5 throughout Psych mental status grossly normal and thought process normal Skin no rashes or lesions noted and no wounds MDM MDM MDM Narrative Medical decision making narrative: Suspect patient has viral gastroenteritis given the history. The most of her tenderness is in the left upper quadrant and somewhat in the epigastrium as well. Labs obtained including liver enzymes and lipase, those are all normal, ruling out pancreatitis from the alcohol she had last night. Serum is negative ruling out ectopic causing her abdominal pain. She was treated empirically with IV fluids, Zofran, dicyclomine, Toradol. On reexamination she feels much better and her abdominal pain is resolved. This is consistent with my suspected diagnosis. At this point I think supportive care is warranted with prescriptions for Zofran and dicyclomine, she is given a work note for tomorrow as well. Lab Data Attestation: I reviewed the patient's lab results. Labs: Laboratory Results - last 24 hr 11/10/23 06:45 WBC 6.0 RBC 4.51 Hgb 13.3 Hct 36.6 L MCV 81.2 MCH 29.5 MCHC 36.3 H RDW Std Deviation 40.7 RDW Coeff of Estrada 13.9 Plt Count 305 MPV 9.9 Immature Gran % (Auto) 0.300 Neut % (Auto) 81.8 H Lymph % (Auto) 11.9 L [place] % (Auto) 5.2 Eos % (Auto) 0.5 Baso % (Auto) 0.3 Absolute Neuts (auto) 4.9 Absolute Lymphs (auto) 0.71 L Nucleated RBC % 0 Sodium 140 Potassium 3.9 Chloride 111 H Carbon Dioxide 24.0 Anion Gap 5 BUN 14 Creatinine 0.86 Estim Creat Clear Calc 88.60 Est GFR (MDRD) Af Amer 105 Est GFR (MDRD) Non-Af 87 BUN/Creatinine Ratio 16.2 Glucose 101 Calcium 9.0 Total Bilirubin 0.70 AST 19 ALT 21 Alkaline Phosphatase 52 Total Protein 7.8 Albumin 3.6 Globulin 4.2 Albumin/Globulin Ratio 0.9 Lipase 39 Serum , Qual NEGATIVE Discharge Plan Triage Chief Complaint: Nausea/Vomiting ED Provider: Harish Mccarthy Dx/Rx/DC Orders Clinical Impression: Viral gastroenteritis Instructions: ED Gastroenteritis, Viral (Adult) Prescriptions: New ondansetron [ondansetron] 4 mg tablet,disintegrating 8 mg PO Q8H PRN PRN (Reason: Nausea) Qty: 20 0RF dicyclomine 10 mg capsule 20 mg PO Q8H PRN PRN (Reason: abdominal pain) Qty: 20 0RF No Action desogestrel-ethinyl estradiol [Enskyce] 0.15-0.03 mg tablet 1 tab PO DAILY Patient Comments: take 1 tablet by mouth once daily Stand Alone Forms: ED Work / School Excuse Primary Care Provider: Care Physician,No Primary Referrals: Doctor,Your [Non-Staff] - 3-5 Days if not improving Disposition Disposition: Home, Self Care
[2023-11-10] MEDS: Dicyclomine 20 MG/2 ML Vial IM (06:43)
[2023-11-10] MEDS: 0.9% Normal Saline (1000mL) 1,000 ML 999 ML IV (06:43)
[2023-11-10] MEDS: Ondansetron 4 MG/2 ML Vial IV (06:46)
[2023-11-10 06:49] LABS: Absolute Lymphocyte Count 0.71 X10^3/uL (0.83-4.51); Absolute Neutrophil Count 4.9 X10^3/uL (2.0-7.7); Basophil# 0.02 X10^3/uL; Basophil% 0.3 % (0-1); Eosinophil# 0.03 X10^3/uL; Eosinophils% 0.5 % (0-5); Hematocrit 36.6 % (37-47); Hemoglobin 13.3 g/dL (12.0-15.0); Lymphocyte # 0.71 X10^3/ul (0.83-4.51); Lymphocyte % 11.9 % (19-41); Mean Corp Hgb Conc 36.3 g/dL (32-36); Mean Corpuscular Hgb 29.5 pg (27.0-32.0); Mean Corpuscular Volume 81.2 fL (81-99); Mean Platelet Vol. 9.9 fl (6.2-12.0); Monocyte# 0.31 X10^3/uL; Monocyte% 5.2 % (0-10); NRBC Flagged by Analyzer 0 % (0-5); Neutrophil # 4.86 X10^3/uL (2.7-7.7); Neutrophil % 81.8 % (47-70); Platelet Count 305 K/mm3 (150-450); RBC Distribution Width CV 13.9 % (11.6-14.6); RBC Distribution Width SD 40.7 fl (35.1-43.9); Red Blood Count 4.51 M/mm3 (4.2-5.4)
[2023-11-10] MEDS: Ketorolac 30 MG/ML Syringe IV (06:50)
[2023-11-10 07:31] LABS: Internal QC Validated? YES +Cl - CLEAR BKGD; Pregnancy, Serum, hCG Quali. NEGATIVE Negative
[2023-11-10 07:38] LABS: ALB/GLOB Ratio 0.9 RATIO (0.9-2.4); AST(SGOT) 19 U/L (15-37); Alanine Aminotransfer ALT/SGPT 21 U/L (13-56); Albumin, Serum 3.6 g/dL (3.2-5.0); Alkaline Phosphatase 52 U/L (45-117); Anion Gap 5 (5-15); BUN 14 mg/dL (7-18); BUN/Creat Ratio 16.2 RATIO (10-20); Chloride 111 mmol/L (98-107); Creatinine, Serum 0.86 mg/dL (0.55-1.02); EST Glomerular Filtration Rate 87 mL/min (>60); Est Glom Filt Rate - Afr Amer 105 mL/min (>60); Globulin 4.2 g/dL (2.2-4.2); Glucose 101 mg/dL (74-106); Lipase 39 U/L (13-75); Potassium 3.9 mmol/L (3.5-5.1); Protein, Total 7.8 g/dL (6.4-8.2); Sodium Level 140 mmol/L (136-145)
[2023-11-10 09:00] VITALS: BP 118/60; PULSE 80; RESP 16; O2SAT 99
== END 2023-11-10 09:00 | disposition home or self-care (01) ==
PROVIDERS: Emergency Provider Emergency Medicine; Visit Provider Emergency Medicine
DX: A08.4 Viral intestinal infection, unspecified (principal); R51.9 Headache, unspecified
CPT/HCPCS: 80053; 83690; 84703; 85025; 96361; 96372; 96374; 96375; 99282; J7030; A4216; J2405

== ENCOUNTER 2025-02-09 22:28 | Emergency (ER) | payer SELFPAY ==
[2025-02-09 22:29] VITALS: BP 118/86; PULSE 86; RESP 18; TEMP 36.9; O2SAT 98; BMI 21.9
--- NOTE | 2025-02-09 22:33 | RAD_ITS ---
PROCEDURE: WRIST MIN 3 VIEWS 02/09/2025 REASON FOR EXAM: PAIN TECHNIQUE: 3 view(s) of the left wrist. COMPARISON: None FINDINGS: No fracture or dislocation. Joint spaces are maintained. No significant soft tissue swelling. No radiopaque foreign body. RAD/Wrist min 3 Views IMPRESSION: No acute fracture or dislocation. Reading Location: [facility]
--- NOTE | 2025-02-09 23:13 | EDS_ITS ---
HPI History of Present Illness Chief Complaint: Upper Extremity Injury Informant: patient Narrative Narrative: Patient states she has a history of some chronic pain in her left wrist, yesterday she dove into a ball pit and fell backwards, landing on outstretched h and injuring her left wrist. She been having pain in the ulnar aspect ever since, hurts more to move, she denies any numbness in her fingers. No other injuries. [id number]. PFSH PFS Medical History History of tuberculosis Home Medications ?Medication ?Instructions ?Recorded ?Last Taken ?Type desogestrel 0.15 mg-ethinyl 1 tab PO DAILY 11/10/23 Un known History estradiol 0.03 mg tablet (Enskyce) dicyclomine 10 mg capsule 20 mg (2 x 10 mg) PO Q8H PRN PRN 11/10/23 Unknown Rx abdominal pain #20 CAPSULES ondansetron 4 mg disintegrating 8 mg (2 x 4 mg) PO Q8H PRN PRN 11/10/23 Unknown Rx tablet Nausea #20 tabs Allergy/AdvReac Type Severity Reaction Status Date / Time No Known Allergies Allergy Verified 02/09/25 22:33 Social History household members: none Smoking Status: Never smoker substance use type: does not use ROS ROS ED Constitutional Constitutional ED: Denies chills or fever(s) Musculoskeletal Musculoskeletal: Reports extremity pain; Denies neck pain Integumentary Denies Abrasions, rash or wounds Neurologic Neurologic: Denies paresthesias or weakness EXAM Physical Exam Const Vital Signs: 02/09/25 22:29 Temperature 98.4 F Temperature Source Temporal Pulse Rate 86 Respiratory Rate 18 Blood Pressure 118/86 H Blood Pressure Mean 96 Pulse Ox 98 Oxygen Delivery Method Room Air Positive well nourished and well developed General Appearance ED: well developed and NAD Neck full ROM and supple Back/Spine normal ROM and normal to inspection Extremity Extremity Narrative: Left upper extremity: No deformities or significant swelling. She has tenderness at the ulnar aspect of the of the carpus, but nontender at the distal ulna and distal radius and snuffbox. Able to move but limited. Able to supinate and pronate without difficulty. No tenderness elsewhere in the left upper extremity. Normal ulnar, median, radial motor and sensory function. Neuro oriented x3, no focal motor deficits and no sensory deficits noted Sensorium / Orientation: alert Psych mental status grossly normal and thought process normal Skin no wounds Rashes: no rashes MDM MDM MDM Narrative Medical decision making narrative: 3 views of the left wrist on my interpretation are negative for acute fracture or dislocation. The views are not perfect of the scaphoid or the lunate/carpate, however she is not tender in these areas. Radiology in agreement there is no acute fracture or dislocation. She is placed in a wrist splint that she can use as needed and follow-up with orthopedics if she does not have improvement in 2 weeks, but she is counseled that she is likely to have pain longer than that. Advised to use anti-inflammatories which we gave her tonight. Radiography Diagnostic Testing: Clinical Impression(s) from Imaging Studies Wrist X-Ray 02/09/25 22:33 IMPRESSION: No acute fracture or dislocation. [facility] Discharge Plan Triage Chief Complaint: Upper Extremity Injury ED Provider: Harish Mccarthy Dx/Rx/DC Orders Clinical Impression: Sprain of UCL of left wrist Instructions: ED Wrist Sprain Prescriptions: No Action desogestrel-ethinyl estradiol [Enskyce] 0.15-0.03 mg tablet 1 tab PO DAILY Patient Comments: take 1 tablet by mouth once daily ondansetron [ondansetron] 4 mg tablet,disintegrating 8 mg PO Q8H PRN PRN (Reason: Nausea) Qty: 20 0RF dicyclomine 10 mg capsule 20 mg PO Q8H PRN PRN (Reason: abdominal pain) Qty: 20 0RF Primary Care Provider: Care Physician,No Primary Referrals: Kenton Menendez MD [Med Staff - Active Staff] - 10-14 Days if not better Print Language: Yoruba Disposition Disposition: Home, Self Care
[2025-02-09] MEDS: Naproxen 500 MG Tablet PO (23:36)
[2025-02-09 23:47] VITALS: BP 108/83; PULSE 98; RESP 16; TEMP 36.9; O2SAT 98
[2025-02-09 23:48] VITALS: BP 108/83; PULSE 98; RESP 16; TEMP 36.9; O2SAT 98
== END 2025-02-09 23:48 | disposition home or self-care (01) ==
LOC: ED 23:24
PROVIDERS: Emergency Provider Emergency Medicine; Visit Provider Emergency Medicine
DX: S63.592A Other specified sprain of left wrist, initial encounter (principal); G89.29 Other chronic pain; W17.89XA Other fall from one level to another, initial encounter
CPT/HCPCS: 73110; 99282